=== PATIENT | female | born 1955 | race Caucasian/White ===

== ENCOUNTER 2021-06-29 17:57 | Inpatient (IN) ==
[2021-06-29] MEDS ORDERED: 0.9 % Sodium Chloride 1,000 ML ONE ×2 (18:01→18:13)
[2021-06-29] MEDS ORDERED: cefTRIAXone 1,000 MG in Water for inj. (sterile) 10 ML IVP ONE (18:09)
[2021-06-29 18:18] LABS: ABG Base Excess -12 mEq/L (-2 to 3); ABG HCO3 13 mEq/L (21-27); ABG Oxygen Saturation 99 % (95-98); ABG PCO2 28 mmHg (35-45); ABG PH 7.28 pH Units (7.32-7.45); ABG PO2 158 mmHg (85-104); ABG TCO2 14 mEq/L (20-26)
[2021-06-29] MEDS: 0.9 % Sodium Chloride 1,000 ML IVC ONE ×2 (18:18→18:21)
[2021-06-29] MEDS ORDERED: Isovue-370 500 ML BOTTLE IVP ONE (18:32)
[2021-06-29] MEDS ORDERED: Piperacillin/Tazobactam 3.375 GM in 0.9 % Sodium Chloride Mini Bag 100 ML IVPB ONE (18:32)
[2021-06-29 18:33] LABS: Hematocrit 43.7 % (35.3-44.9); Hemoglobin 13.1 g/dL (11.5-15.4); Mean Corpuscular Hemoglobin 28.1 pg (28.0-33.3); Mean Corpuscular Volume 93.6 fL (83.0-100.0); Mean Platelet Volume 9.7 fL (9.4-12.4); Monocytes # 0.2 K/mcL (0.0-1.3); Platelet Count 291 K/mcL (140-400); Red Blood Count 4.67 M/mcL (3.82-4.97); Red Cell Distribution Width 14.3 % (11.5-14.5)
[2021-06-29] MEDS ORDERED: 0.9 % Sodium Chloride 250 ML ONE (18:39)
[2021-06-29] MEDS ORDERED: *HR* Norepinephrine 4 MG/4 ML VIAL IVC ONE ×2 (18:39→21:37)
[2021-06-29 18:45] LABS: INR 1.5; Prothrombin Time 16.8 Seconds (9.4-12.1)
[2021-06-29 18:48] LABS: Activated Partial Thrombo Time 32.2 Seconds (26.0-36.0)
[2021-06-29 18:53] LABS: Albumin 3.4 g/dL (3.5-5.7); Albumin/Globulin Ratio 1.1 (1.1-2.2); Bilirubin,Direct 0.1 mg/dL (0.0-0.2); Bilirubin,Indirect 0.6 mg/dL (0.0-1.0); Bilirubin,Total 0.7 mg/dL (0.3-1.0); Magnesium 2.6 mg/dL (1.6-2.6); Phosphorous 4.1 mg/dL (2.7-4.5); Total Protein 6.4 g/dL (6.4-8.9)
[2021-06-29 18:54] LABS: Basophils # 0.1 K/mcL (0.0-0.2); Large Platelets Present (Not Present); Lymphocytes # 0.8 K/mcL (0.6-4.6); Neutrophils # 1.7 K/mcL (1.6-8.9); Platelet Estimate Normal (Normal); Reactive Lymphocytes Present (Not Present)
[2021-06-29 19:04] LABS: Troponin I 0.04 ng/mL (< 0.04)
[2021-06-29] MEDS: Norepinephrine 4 MG/254 ML IV.SOLN IVC SCH (19:06)
[2021-06-29] MEDS ORDERED: Ringers Solution, Lactated 1,000 ML ONE (19:23)
[2021-06-29] MEDS: Ringers Solution, Lactated 1,000 ML IVC SCH (19:29)
[2021-06-29] MEDS ORDERED: CefOXitin 1,000 MG VIAL ONE (21:00)
[2021-06-29] MEDS ORDERED: *HR* Rocuronium Bromide 50 MG/5 ML VIAL ONE (21:04)
[2021-06-29] MEDS ORDERED: Lidocaine -MPF 2% 5 ML VIAL ONE (21:04)
[2021-06-29] MEDS ORDERED: EPINEPHrine 1 MG/ML VIAL ONE (21:04)
[2021-06-29] MEDS ORDERED: *HR* FentaNYL (PF) 100 MCG/2 ML VIAL ONE ×2 (21:06→23:56)
[2021-06-29] MEDS ORDERED: *HR* Propofol 200 MG/20 ML VIAL IVP ONE (21:07)
[2021-06-29] MEDS ORDERED: Lidocaine 1% 20 ML MDV ONE (21:09)
[2021-06-29] MEDS ORDERED: Heparin 1,000 UNITS/500 mL 500 ML ONE (21:10)
[2021-06-29] MEDS ORDERED: Albumin Human 5% 12.5 GM/250 ML IV.SOLN ONE (21:37)
[2021-06-29] MEDS ORDERED: *HR* Vasopressin 20 UNIT/ML VIAL ONE (21:38)
[2021-06-29] MEDS ORDERED: *HR* Succinylcholine 200 MG/10 ML VIAL IVP ONE (21:40)
[2021-06-29] MEDS ORDERED: 0.9 % Sodium Chloride 300 ML ONE (21:48)
[2021-06-29 22:27] LABS: ABG Base Excess -6 mEq/L (-2 to 3); ABG HCO3 20 mEq/L (21-27); ABG Oxygen Saturation 100 % (95-98); ABG PCO2 39 mmHg (35-45); ABG PH 7.32 pH Units (7.32-7.45); ABG PO2 278 mmHg (85-104); ABG TCO2 21 mEq/L (20-26)
[2021-06-29 23:04] LABS: Hematocrit 30.6 % (35.3-44.9); Mean Corpuscular HGB Conc 31.4 g/dL (31.6-35.5); Mean Corpuscular Hemoglobin 28.3 pg (28.0-33.3); Mean Corpuscular Volume 90.3 fL (83.0-100.0); Mean Platelet Volume 10.2 fL (9.4-12.4); Monocytes # 0.3 K/mcL (0.0-1.3); Platelet Count 196 K/mcL (140-400); Red Blood Count 3.39 M/mcL (3.82-4.97); Red Cell Distribution Width 14.4 % (11.5-14.5); White Blood Count 2.9 K/mcL (4.3-11.1)
[2021-06-29 23:06] LABS: Hemoglobin 9.6 g/dL (11.5-15.4)
[2021-06-29 23:11] LABS: INR 1.8; Prothrombin Time 20.2 Seconds (9.4-12.1)
[2021-06-29 23:14] LABS: Activated Partial Thrombo Time 31.2 Seconds (26.0-36.0)
[2021-06-29 23:23] LABS: Calcium 7.7 mg/dL (8.6-10.3)
[2021-06-29 23:34] LABS: Lymphocytes # 0.6 K/mcL (0.6-4.6); Reactive Lymphocytes Present (Not Present)
[2021-06-29 23:35] LABS: Large Platelets Present (Not Present); Platelet Estimate Normal (Normal); Toxic Granulation Present (Not Present)
[2021-06-30] MEDS ORDERED: Artificial Tears SOLN 15 ML BOTTLE BOTH EYES PRN (00:32)
[2021-06-30] MEDS ORDERED: Pantoprazole 40 MG VIAL IVP ONE (00:55)
[2021-06-30 01:02] LABS: ABG Base Excess -10 mEq/L (-2 to 3); ABG HCO3 15 mEq/L (21-27); ABG Oxygen Saturation 100 % (95-98); ABG PCO2 32 mmHg (35-45); ABG PH 7.29 pH Units (7.32-7.45); ABG PO2 227 mmHg (85-104); ABG TCO2 16 mEq/L (20-26); Blood Gas Modality ASSIST CONTROL; Blood Gas VT 500 cc
[2021-06-30] MEDS: FentaNYL (PF) 1,000 MCG/100 ML IV.SOLN IVC SCH ×2 (01:25→11:14)
[2021-06-30] MEDS: Dexmedetomidine HCl 400 MCG/100 ML MLS IVC SCH ×3 (01:27→22:55)
[2021-06-30] MEDS: Midazolam HCl 50 MG/100 ML IV.SOLN IVC SCH ×2 (01:28→10:29)
[2021-06-30] MEDS: Norepinephrine 4 MG/254 ML IV.SOLN IVC SCH ×3 (01:30→21:51)
[2021-06-30] MEDS: Fluconazole 400 MG/200 ML 400 MG/200 ML BAG IVPB SCH ×2 (01:50→03:57)
[2021-06-30 03:33] LABS: VBG Ionized Calcium 1.29 mmol/L (1.15-1.35)
[2021-06-30 03:34] LABS: Hematocrit 36.4 % (35.3-44.9); Mean Corpuscular HGB Conc 31.3 g/dL (31.6-35.5); Mean Corpuscular Hemoglobin 27.7 pg (28.0-33.3); Mean Corpuscular Volume 88.6 fL (83.0-100.0); Mean Platelet Volume 10.9 fL (9.4-12.4); Monocytes # 0.2 K/mcL (0.0-1.3); Platelet Count 191 K/mcL (140-400); Red Blood Count 4.11 M/mcL (3.82-4.97); Red Cell Distribution Width 14.7 % (11.5-14.5); White Blood Count 2.8 K/mcL (4.3-11.1)
[2021-06-30 03:46] LABS: Hemoglobin 11.4 g/dL (11.5-15.4)
[2021-06-30 03:47] LABS: INR 1.8; Prothrombin Time 19.8 Seconds (9.4-12.1)
[2021-06-30 04:03] LABS: Troponin I 0.08 ng/mL (< 0.04)
[2021-06-30 04:04] LABS: Albumin 2.7 g/dL (3.5-5.7); Albumin/Globulin Ratio 1.6 (1.1-2.2); Bilirubin,Total 0.7 mg/dL (0.3-1.0); Calcium 8.4 mg/dL (8.6-10.3); Globulin 1.7 g/dL (2.4-3.5); Phosphorous 5.4 mg/dL (2.7-4.5); Potassium 3.9 mEq/L (3.5-5.1); Total Protein 4.4 g/dL (6.4-8.9)
[2021-06-30] MEDS: Ringers Solution, Lactated 1,000 ML IVC SCH ×5 (04:07→22:56)
[2021-06-30 04:17] LABS: ABG Base Excess -10 mEq/L (-2 to 3); ABG HCO3 15 mEq/L (21-27); ABG Oxygen Saturation 99 % (95-98); ABG PCO2 30 mmHg (35-45); ABG PO2 141 mmHg (85-104); ABG TCO2 16 mEq/L (20-26); Blood Gas Modality ASSIST CONTROL; Blood Gas VT 500 cc
[2021-06-30] MEDS ORDERED: Acetaminophen 650 MG RECTAL SUPP RC PRN (04:33)
[2021-06-30] MEDS ORDERED: Naloxone 0.4 MG/ML INJ IVP PRN (04:33)
[2021-06-30] MEDS ORDERED: Dextrose Gel 15 GM/37.5 ML TUBE PO PRN ×2 (04:35)
[2021-06-30] MEDS ORDERED: *HR* Dextrose 50 % in Water (Syg) 50 ML SYRINGE IVP PRN (04:35)
[2021-06-30] MEDS ORDERED: D5% in Water 1,000 ML IVC PRN (04:35)
[2021-06-30] MEDS ORDERED: Saline Nasal Spray 44 ML BOTTLE NS PRN (04:38)
[2021-06-30] MEDS ORDERED: Saliva Stimulant 44.3ml BOTTLE PO PRN (04:38)
[2021-06-30] MEDS: Piperacillin/Tazobactam 3.375 GM in 0.9 % Sodium Chloride Mini Bag 100 ML IVPB SCH ×2 (04:40→12:44)
[2021-06-30] MEDS: Pantoprazole 40 MG VIAL IVP SCH ×2 (04:51→18:09)
[2021-06-30] MEDS: Artificial Tears SOLN 15 ML BOTTLE BOTH EYES SCH ×6 (04:51→23:07)
[2021-06-30 07:36] LABS: Chol/HDL Ratio 1.9 (0-4.9)
[2021-06-30] MEDS ORDERED: Ipratropium/Albuterol Neb 3 ML ONE (07:47)
[2021-06-30] MEDS: Ipratropium/Albuterol Neb 3 ML IH SCH ×3 (07:48→22:14)
[2021-06-30] MEDS: Chlorhexidine Rinse 15 ML MOUTHWASH MM SCH ×2 (07:48→21:10)
[2021-06-30 07:49] LABS: Thyroid Stimulating Hormone 2.425 mcIU/mL (0.340-5.600)
[2021-06-30 08:53] LABS: Lymphocytes # 0.4 K/mcL (0.6-4.6); Neutrophils # 1.7 K/mcL (1.6-8.9); Platelet Estimate Normal (Normal); Toxic Granulation Present (Not Present); Toxic Vacuolation Present (Not Present)
[2021-06-30] MEDS ORDERED: Levothyroxine Sodium 100 MCG VIAL IVP SCH (09:00)
[2021-06-30] MEDS ORDERED: Pantoprazole 40 MG VIAL IVP SCH (09:00)
[2021-06-30 10:45] LABS: Estimated Average Glucose 108 mg/dl; Hemoglobin A1C 5.4 %
[2021-06-30] MEDS ORDERED: FentaNYL (PF) 2,500 MCG/50 ML IV.SOLN IVC SCH (10:45)
[2021-06-30] MEDS ORDERED: D10% in Water 500 ML IVC PRN (12:14)
[2021-06-30 12:17] LABS: ABG Base Excess -12 mEq/L (-2 to 3); ABG HCO3 15 mEq/L (21-27); ABG Oxygen Saturation 82 % (95-98); ABG PCO2 37 mmHg (35-45); ABG PH 7.21 pH Units (7.32-7.45); ABG PO2 55 mmHg (85-104); ABG TCO2 16 mEq/L (20-26); Blood Gas Modality ASSIST CONTROL; Blood Gas VT 487 cc
[2021-06-30] MEDS: Hydrocortisone Sodium Succ 100 MG/2 ML VIAL IVP SCH ×2 (12:39→21:11)
[2021-06-30 12:47] LABS: Mean Corpuscular HGB Conc 32.4 g/dL (31.6-35.5); Mean Corpuscular Hemoglobin 28.7 pg (28.0-33.3); Mean Corpuscular Volume 88.5 fL (83.0-100.0); Mean Platelet Volume 10.4 fL (9.4-12.4); Platelet Count 179 K/mcL (140-400); Red Blood Count 4.18 M/mcL (3.82-4.97); Red Cell Distribution Width 15.1 % (11.5-14.5)
[2021-06-30 12:49] LABS: White Blood Count 5.6 K/mcL (4.3-11.1)
[2021-06-30] MEDS: Thiamine (B-1) 500 MG in 0.9 % Sodium Chloride 50 ML IVPB SCH ×2 (12:50→22:45)
[2021-06-30 12:51] LABS: Bilirubin,Urine Negative (Negative); Blood,Urine Large (Negative); Clarity,Urine Turbid (Clear); Color,Urine Yellow (Yellow); Glucose,Urine (UA) Normal (Normal); Hyaline Casts,Urine Moderate per lpf (None Seen); Ketones,Urine Negative (Negative); Leukocyte Esterase,Urine Negative (Negative); Mucus,Urine Few per lpf (None-Few); Nitrite,Urine Negative (Negative); PH,Urine 5.5 pH Units (5.0-8.0); Protein,Urine 70 mg/dL (Neg-Trace); Specific Gravity,Urine > 1.030 (1.010-1.025); Urobilinogen,Urine Normal (Normal)
[2021-06-30 12:51] LABS: VBG Ionized Calcium 1.17 mmol/L (1.15-1.35)
[2021-06-30 12:56] LABS: Sodium, Urine 12.1 mEq/L
[2021-06-30] MEDS ORDERED: Albumin 25% 25gram/100mL 25 GM/100 ML IV.SOLN IVPB ONE (13:00)
[2021-06-30 13:07] LABS: Albumin 2.8 g/dL (3.5-5.7); Albumin/Globulin Ratio 1.4 (1.1-2.2); Bilirubin,Direct 0.3 mg/dL (0.0-0.2); Bilirubin,Indirect 0.2 mg/dL (0.0-1.0); Bilirubin,Total 0.5 mg/dL (0.3-1.0); Calcium 7.9 mg/dL (8.6-10.3); Magnesium 2.2 mg/dL (1.6-2.6); Potassium 6.3 mEq/L (3.5-5.1); Total Protein 4.8 g/dL (6.4-8.9)
[2021-06-30 14:43] LABS: ABG Base Excess -9 mEq/L (-2 to 3); ABG HCO3 19 mEq/L (21-27); ABG Oxygen Saturation 88 % (95-98); ABG PCO2 46 mmHg (35-45); ABG PH 7.21 pH Units (7.32-7.45); ABG PO2 67 mmHg (85-104); ABG TCO2 20 mEq/L (20-26); Blood Gas Modality ASSIST CONTROL; Blood Gas VT 450 cc
[2021-06-30] MEDS: Sodium Bicarbonate 150 MEQ in D5% in Water 1,000 ML IVC SCH (14:43)
[2021-06-30] MEDS ORDERED: Acetaminophen IV 1,000 MG/100 ML BAG IVPB ONE (16:32)
[2021-06-30] MEDS ORDERED: Clinimix 5%-20% SOLUTION 2,000 ML with MVI, adult with vitamin K 10 ML, Sodium Phosph... IVC SCH (17:00)
[2021-06-30 20:47] LABS: Albumin 1.8 g/dL (3.5-5.7); Albumin/Globulin Ratio 1.8 (1.1-2.2); Bilirubin,Total 0.3 mg/dL (0.3-1.0); Calcium 4.5 mg/dL (8.6-10.3); Magnesium 1.5 mg/dL (1.6-2.6); Potassium 4.5 mEq/L (3.5-5.1); Total Protein 2.8 g/dL (6.4-8.9)
[2021-06-30] MEDS ORDERED: Micafungin 100 MG in 0.9 % Sodium Chloride Mini Bag 100 ML IVPB SCH (21:00)
[2021-06-30 21:08] LABS: Hemoglobin 10.1 g/dL (11.5-15.4)
[2021-06-30 21:16] LABS: VBG Ionized Calcium 1.01 mmol/L (1.15-1.35)
[2021-06-30 21:23] LABS: INR 2.1; Prothrombin Time 23.8 Seconds (9.4-12.1)
[2021-06-30 21:25] LABS: Activated Partial Thrombo Time 39.4 Seconds (26.0-36.0)
[2021-06-30] MEDS: Albumin Human 5% 12.5 GM/250 ML IV.SOLN IVC SCH (21:38)
[2021-06-30] MEDS: Calcium Gluconate 1gm/50mL 1 GM/50 ML BAG IVPB SCH ×2 (22:30→23:06)
[2021-07-01] MEDS: Midazolam HCl 50 MG/100 ML IV.SOLN IVC SCH (00:44)
[2021-07-01] MEDS: Ringers Solution, Lactated 1,000 ML IVC SCH (00:45)
[2021-07-01] MEDS: Sodium Bicarbonate 150 MEQ in D5% in Water 1,000 ML IVC SCH ×2 (00:47→10:50)
[2021-07-01] MEDS: Albumin Human 5% 12.5 GM/250 ML IV.SOLN IVC SCH (00:47)
[2021-07-01] MEDS: Piperacillin/Tazobactam 3.375 GM in 0.9 % Sodium Chloride Mini Bag 100 ML IVPB SCH ×2 (00:48→12:51)
[2021-07-01] MEDS: Ipratropium/Albuterol Neb 3 ML IH SCH ×2 (03:00→11:00)
[2021-07-01 03:44] LABS: ABG Base Excess -17 mEq/L (-2 to 3); ABG HCO3 10 mEq/L (21-27); ABG Oxygen Saturation 91 % (95-98); ABG PCO2 27 mmHg (35-45); ABG PH 7.18 pH Units (7.32-7.45); ABG PO2 74 mmHg (85-104); ABG TCO2 11 mEq/L (20-26); Blood Gas Modality ASSIST CONTROL; Blood Gas VT 450 cc
[2021-07-01 03:44] LABS: Hematocrit 30.6 % (35.3-44.9); Hemoglobin 9.5 g/dL (11.5-15.4); Mean Corpuscular Hemoglobin 28.5 pg (28.0-33.3); Mean Corpuscular Volume 91.9 fL (83.0-100.0); Mean Platelet Volume 10.9 fL (9.4-12.4); Nucleated Red Blood Cells 0.8 /100 WBC (0); Platelet Count 111 K/mcL (140-400); Red Blood Count 3.33 M/mcL (3.82-4.97); Red Cell Distribution Width 15.7 % (11.5-14.5); White Blood Count 9.6 K/mcL (4.3-11.1)
[2021-07-01 03:56] LABS: INR 2.7; Prothrombin Time 29.7 Seconds (9.4-12.1)
[2021-07-01] MEDS ORDERED: Ringers Solution, Lactated 1,000 ML IVC ONE (03:58)
[2021-07-01 04:19] LABS: Albumin 2.7 g/dL (3.5-5.7); Albumin/Globulin Ratio 1.6 (1.1-2.2); Bilirubin,Total 1.1 mg/dL (0.3-1.0); Calcium 7.1 mg/dL (8.6-10.3); Globulin 1.7 g/dL (2.4-3.5); Magnesium 2.9 mg/dL (1.6-2.6); Phosphorous 9.2 mg/dL (2.7-4.5); Potassium 7.3 mEq/L (3.5-5.1); Total Protein 4.4 g/dL (6.4-8.9)
[2021-07-01 04:26] LABS: VBG Ionized Calcium 0.96 mmol/L (1.15-1.35)
[2021-07-01] MEDS ORDERED: Calcium Gluconate 1gm/50mL 1 GM/50 ML BAG IVPB ONE (04:26)
[2021-07-01] MEDS ORDERED: *HR* Dextrose 50 % in Water (Syg) 50 ML SYRINGE IVP ONE (04:27)
[2021-07-01] MEDS ORDERED: Insulin Human Regular 10 UNIT in 0.9 % Sodium Chloride 10 ML IV ONE (04:45)
[2021-07-01 04:46] LABS: Platelet Estimate Normal (Normal); Toxic Granulation Present (Not Present); Toxic Vacuolation Present (Not Present)
[2021-07-01 04:47] LABS: Lymphocytes # 1.7 K/mcL (0.6-4.6); Neutrophils # 6.9 K/mcL (1.6-8.9)
[2021-07-01 04:48] LABS: Poikilocytosis 1+ (Not Present)
[2021-07-01] MEDS: Norepinephrine 4 MG/254 ML IV.SOLN IVC SCH ×2 (04:55→08:57)
[2021-07-01] MEDS: Artificial Tears SOLN 15 ML BOTTLE BOTH EYES SCH ×3 (04:55→10:50)
[2021-07-01] MEDS ORDERED: CALCIUM CHLORIDE IVPB ONE (05:00)
[2021-07-01] MEDS ORDERED: SODIUM CHLORIDE 0.9% IVPB ONE (05:00)
[2021-07-01] MEDS: Pantoprazole 40 MG VIAL IVP SCH (05:55)
[2021-07-01] MEDS: Thiamine (B-1) 500 MG in 0.9 % Sodium Chloride 50 ML IVPB SCH ×2 (05:55→12:51)
[2021-07-01] MEDS: Hydrocortisone Sodium Succ 100 MG/2 ML VIAL IVP SCH ×2 (05:55→12:51)
[2021-07-01] MEDS ORDERED: 0.9 % Sodium Chloride 1,000 ML IVC ONE (05:58)
[2021-07-01] MEDS ORDERED: Fluconazole 200 MG/100 ML 200 MG/100 ML BAG IVPB SCH (06:00)
[2021-07-01] MEDS: Dexmedetomidine HCl 400 MCG/100 ML MLS IVC SCH (07:27)
[2021-07-01] MEDS ORDERED: *HR* Heparin 5,000 UNIT/ML VIAL IVP PRN (07:29)
[2021-07-01] MEDS ORDERED: 0.9 % Sodium Chloride 1,000 ML PRIME SCH (07:30)
[2021-07-01] MEDS ORDERED: PrismaSATE BGK 4/2.5 5,000 ML CRRT SCH ×2 (07:30)
[2021-07-01] MEDS: Chlorhexidine Rinse 15 ML MOUTHWASH MM SCH (08:04)
[2021-07-01] MEDS ORDERED: Heparin 1,000 UNITS/500 mL 500 ML ONE (08:19)
[2021-07-01] MEDS ORDERED: *HR* Heparin 5,000 UNIT/ML VIAL ONE (08:25)
[2021-07-01] MEDS ORDERED: Norepinephrine 4 MG/254 ML IV.SOLN IVC SCH (09:00)
[2021-07-01] MEDS ORDERED: Fluconazole 400 MG/200 ML 400 MG/200 ML BAG IVPB SCH (09:00)
[2021-07-01 12:53] LABS: ABG Ionized Calcium 0.95 mmol/L (1.15-1.35)
[2021-07-01] MEDS ORDERED: Acetylcysteine 15,000 MG in D5% in Water 250 ML IVC ONE (13:00)
[2021-07-01 13:09] LABS: Albumin 2.4 g/dL (3.5-5.7); Albumin/Globulin Ratio 1.8 (1.1-2.2); Alkaline Phosphatase 63 Units/L (34-104); BUN/Creatinine Ratio 12 (6-26); Bilirubin,Total 1.4 mg/dL (0.3-1.0); Blood Urea Nitrogen 41 mg/dL (8-23); Calcium 7.2 mg/dL (8.6-10.3); Carbon Dioxide 12 mEq/L (23-29); Chloride 98 mEq/L (98-107); Globulin 1.3 g/dL (2.4-3.5); Glucose 158 mg/dL (70-105); Osmolality,Calculated 287 (280-300); Potassium 6.5 mEq/L (3.5-5.1); Sodium 132 mEq/L (136-145); Total Protein 3.7 g/dL (6.4-8.9); eGFR For African Americans 17 (> 60); eGFR For Non-African Americans 14 (> 60)
[2021-07-01] MEDS ORDERED: Phenylephrine 10 MG in 0.9 % Sodium Chloride 250 ML IVC SCH (13:15)
[2021-07-01] MEDS ORDERED: Acetylcysteine 5,000 MG in D5% in Water 500 ML IVC ONE (14:00)
[2021-07-01 14:13] LABS: Alanine Aminotransferase 1259 Units/L (7-52); Aspartate Amino Transferase > 3000 Units/L (13-39)
[2021-07-01] MEDS ORDERED: Fat Emulsion 250 ML IVPB SCH (17:00)
[2021-07-01] MEDS ORDERED: ACETYLCYSTEINE IVC SCH (18:00)
[2021-07-01] MEDS ORDERED: WATER IVC SCH (18:00)
[2021-07-01] MEDS ORDERED: D5 IVC SCH (18:00)
[2021-07-06] MEDS ORDERED: Levothyroxine Sodium 100 MCG VIAL IVP SCH (09:00)
== END 2021-07-01 13:27 | disposition expired | DRG 853 ==
LOC: EMEROOARM 17:57 → ICNU 20:55 → SUATTDRO 23:16 → ICNU 23:16
PROVIDERS: ADMIT Family Medicine; ATTEND Internal Medicine